=== PATIENT | male | born 1955 | race Caucasian/White ===

== ENCOUNTER → 2019-11-30 | Outpatient (CLI) | payer BC ==
[~2019-11-30] MED LIST: GLUC1CAP40 PO
== END | disposition home or self-care (01) ==
LOC: STAR 12:41
PROVIDERS: ATTEND Surgery Surgery of the Hand
DX: Z01.818 Encounter for other preprocedural examination (principal); M18.12 Unilateral primary osteoarthritis of first carpometacarpal joint, left hand; I49.3 Ventricular premature depolarization; I45.19 Other right bundle-branch block; Z20.828 Contact with and (suspected) exposure to other viral communicable diseases
CPT/HCPCS: 36415; 87635; 93005

== ENCOUNTER 2019-12-05 05:29 | Day surgery (SDC) | payer BC ==
[~2019-12-05] VITALS: Ht 182.9 cm; Wt 89.0 kg
[2019-12-05] MEDS ORDERED: BUPIVACAINE/PF 0.5% ONE (05:56)
[2019-12-05] MEDS ORDERED: LIDOCAINE-MPF 1%, 5ML ONE (05:56)
[2019-12-05] MEDS ORDERED: CHLORHEXIDINE 15 ML UDC MM STA (06:03)
[2019-12-05] MEDS ORDERED: LACTATED RINGERS 1,000 ML IV SCH (06:30)
[2019-12-05] MEDS ORDERED: FENTANYL PF 100 MCG/2ML ONE ×3 (06:52→08:40)
[2019-12-05] MEDS ORDERED: MIDAZOLAM 1 MG/ML, 2ML ONE (06:52)
[2019-12-05] MEDS ORDERED: OXYcodone 5 MG/5 ML ORAL.SOL UDC PO PRN (07:30)
[2019-12-05] MEDS ORDERED: LABETALOL 5MG/ML, 20ML IV PRN (07:30)
[2019-12-05] MEDS ORDERED: hydrALAzine 20 MG/ML, 1ML IV PRN (07:30)
[2019-12-05] MEDS ORDERED: PROMETHAZINE 25 MG/ML, 1ML IVPush PRN (07:30)
[2019-12-05] MEDS ORDERED: MEPERIDINE/PF 25MG/0.5ML IVPush PRN (07:30)
[2019-12-05] MEDS ORDERED: HYDROmorphone 1 MG/ML, 1ML INJ IVPush PRN (07:30)
[2019-12-05] MEDS ORDERED: LORazepam 2 MG/ML, 1ML IVPush PRN (07:30)
[2019-12-05] MEDS ORDERED: ACETAMINOPHEN 325 MG TABLET PO PRN (07:30)
[2019-12-05] MEDS ORDERED: ALBUTEROL SULFATE 2.5 MG/3 ML NPPB PRN (07:30)
[2019-12-05] MEDS ORDERED: KETOROLAC 30 MG/1 ML ONE (07:45)
[2019-12-05] MEDS ORDERED: CEFAZOLIN 1,000 MG ONE (08:11)
[2019-12-05] MEDS ORDERED: PROPOFOL 10 MG/ML, 20ML ONE (08:11)
[2019-12-05] MEDS ORDERED: DEXAMETHASONE 4 MG/ML, 1ML ONE (08:11)
[2019-12-05] MEDS ORDERED: ONDANSETRON 2MG/ML, 2ML ONE (08:11)
[2019-12-05] MEDS ORDERED: OXYcodone 5 MG/5 ML ORAL.SOL UDC ONE (08:36)
[2019-12-05] MEDS: FENTANYL PF 100 MCG/2ML IV PRN ×4 (08:38→09:11)
[2019-12-05] MEDS ORDERED: ACETAMINOPHEN 650 MG/20.3 ML UDC ONE (08:40)
[2019-12-05] MEDS ORDERED: HYDROmorphone 1 MG/ML, 1ML INJ ONE (09:42)
== END 2019-12-05 11:40 | disposition home or self-care (01) ==
LOC: OUT 05:29
PROVIDERS: ATTEND Surgery Surgery of the Hand
DX: G56.02 Carpal tunnel syndrome, left upper limb (principal); M18.12 Unilateral primary osteoarthritis of first carpometacarpal joint, left hand; Z79.899 Other long term (current) drug therapy; Z91.013 Allergy to seafood; Z87.891 Personal history of nicotine dependence; Z82.49 Family history of ischemic heart disease and other diseases of the circulatory system
CPT/HCPCS: 25447; 64721; 73100; J0690; J1100; J1170; J1885; J2250; J2405; J2704; J3010; J7120; 76000